=== PATIENT | male | born 1975 | race Caucasian/White ===

== ENCOUNTER 2020-09-06 17:26 | Emergency (ER) | payer OTHER ==
[~2020-09-06] VITALS: Ht 182.9 cm; Wt 127.5 kg
--- NOTE | ~2020-09-06 | EMS ---
[address] [address] EMS Patient Care Report Name: JILL ZHOU II Room: [facility] Mariano#: [id number] Admission: 09/06/20 Attend Phys: Discharge: 09/06/20 Date of : 77 Report #: [id number] THIS REPORT FOR: //name// Report Transmitted: 09/07/2020 00:39 EMS Care Summary [facility]ID[facility]ET Incident [id number] @ 09/06/2020 16:35 Incident Location [id number] [place] [address] Patient JILL ARREOLA Male, 45 Years 1975 Patient Address [id number] [place] [address] Patient History Gastro-Esophageal Reflux Disease (GERD), Patient Allergies , Patient Medications Protonix, Chief Complaint Pain-musculoskeletal Disposition Transported No Lights/[place] Dispatch Reason Chest Pain (Non-Traumatic) Transported To [facility] Narrative Dispatched to address noted for chest pain. [facility] en route at time noted. Arrived and found IFD with the patient. Patient was alert and oriented and IFD stated that he was complaining of severe chest pain to his chest that moved all throughout the front side. Sharp in nature and severe pain with movement, [address] [place] [address] EMS Patient Care Report Name: JILL ZHOU DAYANA Room: [facility]#: [id number] Admission: 09/06/20 Attend Phys: Discharge: 09/06/20 Date of : 77 Report #: [id number] breathe and palpation. Patient stated that he has no cardiac history and was diagnosed with COVID-19 two weeks ago. Patient stated that his cough has been hurting his chest was well. IFD gathered a 12 lead ECG and gave ASA. 12 lead was within normal limits. Patient was not clammy and was able to transfer [facility] to [facility] and was buckled in. Patient agreed with transported to [facility] which was one of the only hospital not on high volume. Once in ambulance, vitals where taken along with my own 12 lead ECG. IV was obtained and patient stated no blood thinner use and he was in obvious pain. Severe pain noted with palpation. Demographics gathered and 4 MG of morphine given for pain with no relief. Patients lungs sounds where clear and equal in all flores. While en route, no major changes noted to patient. patient still complained of pain and vitals where taken as noted. Additional 12 leads gathered as noted. 4 MG more of Morphine was given at time noted. Radio report given as noted. Arrived and took patient to room 16 and moved to bed. RN was given verbal report and signed for patient care, narcotic waste and patient signed for self. END REPORT EMT-P Benja Johnston Initial Vitals @16:50Pain: 08/12, @17:10Pain: 08/12, @16:58SpO2: 100, @17:01SpO2: 99, @17:02SpO2: 99, @17:03SpO2: 99, @17:08SpO2: 99, @17:13SpO2: 97, @17:16SpO2: 97, @17:18SpO2: 97, @16:56 @17:01 @17:08 @17:16 @16:58P: 80,R: 16,BP: 137/101, @17:02P: 90,R: 16,BP: 145/96, @17:20P: 87,R: 16,BP: 145/91, @16:58GCS: 15, @17:02GCS: 15, @17:20GCS: 15, @16:50 @16:57Glucose: 245, Assessments @16:50MENTAL:SKIN:HEENT:LUNG SOUNDS:ABDOMEN:PELVIS//GI:EXTREMITIES:PULSE:NEURO: [place] [address] EMS Patient Care Report Name: JILL ZHOU II [facility] [id number] Admission: 09/06/20 Attend Phys: Discharge: 09/06/20 Date of : 77 Report #: [id number] Chest Pain, Other (Non-Cardiac) Procedures @17:03Morphine - 4.000 Milligrams (mg) - Intravenous (IV)Response: Unchanged@17:10Morphine - 4.000 Milligrams (mg) - Intravenous (IV)Response: Unchanged@17:01Morphine - 4.000 Milligrams (mg) - Intravenous (IV)Response: Unchanged@17:16Morphine - 4.000 Milligrams (mg) - Intravenous (IV)Response: Unchanged@17:00 cc () Site: Antecubital-LeftResponse: UnchangedSucceeded@16:5612-Lead ECGResponse: UnchangedSucceeded@17:013-Lead ECGResponse: UnchangedSucceeded@17:0812-Lead ECGResponse: UnchangedSucceeded@17:163-Lead ECGResponse: UnchangedSucceeded Timeline 15:50,Call Received 16:35,Dispatch Notified 16:35,Psap Call 16:35,Dispatched 16:36,En Route 16:48,On Scene 16:50,At Patient 16:50,BP: / M,PULSE: ,RR: R,SPO2: Ox,ETCO2: ,BG: ,PAIN: 10,GCS: , 16:50,BP: / M,PULSE: ,RR: R,SPO2: Ox,ETCO2: ,BG: ,PAIN: ,GCS: , 16:56,12-Lead ECG,Response: UnchangedSucceeded, 16:56,BP: / M,PULSE: ,RR: R,SPO2: Ox,ETCO2: ,BG: ,PAIN: ,GCS: , 16:57,BP: / M,PULSE: ,RR: R,SPO2: Ox,ETCO2: ,B,PAIN: ,GCS: , 16:58,BP: / M,PULSE: ,RR: R,SPO2: 100 Ox,ETCO2: ,BG: ,PAIN: ,GCS: , 16:58,BP: 137/101 M,PULSE: 80,RR: 16 R,SPO2: Ox,ETCO2: ,BG: ,PAIN: ,GCS: , 16:58,BP: / M,PULSE: ,RR: R,SPO2: Ox,ETCO2: ,BG: ,PAIN: ,GCS: 15, 17:00,Depart Scene 17:00, cc Site: Antecubital-Left,Response: UnchangedSucceeded, 17:01,Morphine - 4.000 Milligrams (mg) - Intravenous (IV),Response: Unchanged 17:01,3-Lead ECG,Response: UnchangedSucceeded, 17:01,BP: / M,PULSE: ,RR: R,SPO2: 99 Ox,ETCO2: ,BG: ,PAIN: ,GCS: , 17:01,BP: / M,PULSE: ,RR: R,SPO2: Ox,ETCO2: ,BG: ,PAIN: ,GCS: , 17:02,BP: / M,PULSE: ,RR: R,SPO2: 99 Ox,ETCO2: ,BG: ,PAIN: ,GCS: , 17:02,BP: 145/96 M,PULSE: 90,RR: 16 R,SPO2: Ox,ETCO2: ,BG: ,PAIN: ,GCS: , 17:02,BP: / M,PULSE: ,RR: R,SPO2: Ox,ETCO2: ,BG: ,PAIN: ,GCS: 15, 17:03,BP: / M,PULSE: ,RR: R,SPO2: 99 Ox,ETCO2: ,BG: ,PAIN: ,GCS: , 17:03,Morphine - 4.000 Milligrams (mg) - Intravenous (IV),Response: Unchanged 17:08,12-Lead ECG,Response: UnchangedSucceeded, 17:08,BP: / M,PULSE: ,RR: R,SPO2: 99 Ox,ETCO2: ,BG: ,PAIN: ,GCS: , 17:08,BP: / M,PULSE: ,RR: R,SPO2: Ox,ETCO2: ,BG: ,PAIN: ,GCS: , 17:10,BP: / M,PULSE: ,RR: R,SPO2: Ox,ETCO2: ,BG: ,PAIN: 10,GCS: , 17:10,Morphine - 4.000 Milligrams (mg) - Intravenous (IV),Response: Unchanged 17:13,BP: / M,PULSE: ,RR: R,SPO2: 97 Ox,ETCO2: ,BG: ,PAIN: ,GCS: , 17:16,Morphine - 4.000 Milligrams (mg) - Intravenous (IV),Response: Unchanged [address] [address] EMS Patient Care Report Name: JILL ZHOU II Room: [facility]#: [id number] Admission: 09/06/20 Attend Phys: Discharge: 09/06/20 Date of : 77 Report #: [id number] 17:16,3-Lead ECG,Response: UnchangedSucceeded, 17:16,BP: / M,PULSE: ,RR: R,SPO2: 97 Ox,ETCO2: ,BG: ,PAIN: ,GCS: , 17:16,BP: / M,PULSE: ,RR: R,SPO2: Ox,ETCO2: ,BG: ,PAIN: ,GCS: , 17:18,BP: / M,PULSE: ,RR: R,SPO2: 97 Ox,ETCO2: ,BG: ,PAIN: ,GCS: , 17:20,BP: 145/91 M,PULSE: 87,RR: 16 R,SPO2: Ox,ETCO2: ,BG: ,PAIN: ,GCS: , 17:20,BP: / M,PULSE: ,RR: R,SPO2: Ox,ETCO2: ,BG: ,PAIN: ,GCS: 15, 17:23,At Destination 17:35,Call Closed Disclaimer v1.1 Copyright 2020 [employer] This EMS Care Summary contains data elements from the applicable legal record (which may be displayed differently). It is designed to provide pertinent information for the following purposes: continuity of care, clinical quality, and state data reporting. The complete legal record is available to ED staff and administrators of the receiving hospital in [employer]'s Patient Tracker. All data is provided "as is."
[2020-09-06] MEDS ORDERED: PROTONIX 20 MG20 MG PO (17:39)
[2020-09-06] MEDS ORDERED: SKELAXIN 800 M800 M1 PO (17:40)
[2020-09-06] MEDS ORDERED: LIBRAX CAPSULE1 EACH PO (17:40)
[2020-09-06 17:52] LABS: ABSOLUTE BASOPHILS 0.1 thou/uL (0.0-0.2); ABSOLUTE EOSINOPHILS 1.1 thou/uL (0.0-0.7); ABSOLUTE LYMPHOCYTES 2.3 thou/uL (0.8-5.3); ABSOLUTE MONOCYTES 0.8 thou/uL (0.0-1.2); ABSOLUTE NEUTROPHILS 6.8 thou/uL (1.6-8.1); BASOPHILS 0.8 %; EOSINOPHILS 9.6 %; HEMATOCRIT 44.9 % (42.0-52.0); LYMPHOCYTES 20.7 %; MCH 28.7 pg (26.0-34.0); MCHC 33.5 g/dL (28.0-37.0); MCV 85.6 fL (80.0-100.0); MONOCYTES 7.5 %; MPV 7.4 fl. (7.2-11.1); NUCLEATED RBCS 0 /100WBC; PLATELET COUNT* 247 thou/uL (150-400); POLYS 61.4 %; RBC 5.25 mil/uL (4.50-6.00); RDW-CV 13.6 % (10.5-14.5)
[2020-09-06 17:56] LABS: CALCIUM 8.5 mg/dL (8.5-10.1); CREATININE 1.3 mg/dL (0.6-1.3); POTASSIUM 3.6 mmol/L (3.5-5.1)
[2020-09-06 17:58] LABS: APTT 23.7 Seconds (25.0-31.3); INR 1.1; PROTIME 11.4 Seconds (9.20-11.50)
[2020-09-06 18:10] LABS: ALBUMIN 3.8 g/dL (3.4-5.0); CK-MB MASS 1.6 ng/mL (<0.5-3.6); MAGNESIUM 1.9 mg/dL (1.8-2.4); TOTAL BILIRUBIN 0.5 mg/dL (<0.1-1.0); TOTAL PROTEIN 7.7 g/dL (6.4-8.2)
[2020-09-06] MEDS ORDERED: NORCO 5-325 TA1 EAC2 PO (18:16)
[2020-09-06 18:25] VITALS: BP 137/99
--- NOTE | 2020-09-07 09:52 | EKG ---
[place] [address] ELECTROCARDIOGRAM REPORT Name: RAJEEVEVAJILL II [id number] Admission: 09/06/20 Attend Phys: Discharge: 09/06/20 Date of : 77 Date of Service: 09/06/201732 Report #: [id number] THIS REPORT FOR: //name// [facility] ED Test Date: 2020-09-06 Test Time: 17:33:05 Pat Name: JILL ZHOU Department: Room: Gender: Financial Assistant: : 1975 Requested By: Monty Barrera Order Number: [id number] MD: Frederick Mack Measurements Intervals [place] Rate: 78 P: 58 NH: 169 QRS: 9 QRSD: 72 T: 17 QT: 377 QTc: 430 Interpretive Statements Sinus rhythm Anterior infarct, old Borderline repolarization abnormality No previous ECG available for comparison Electronically Signed On 09-07-2020 9:52:06 SOFTWARE DESIGN ENGINEER by Frederick Mack [email or web address] <ELECTRONICALLY SIGNED> By: Frederick Mack MD, [facility] 09/07/20 [id number] Frederick Mack MD, FACC /EPI
== END 2020-09-06 18:27 | disposition home or self-care (01) ==
LOC: M.ERS 17:26
PROVIDERS: Family Medicine
DX: R07.89 Other chest pain (principal); Z88.8 Allergy status to other drugs, medicaments and biological substances